=== PATIENT | female | born 1935 | race Two or more races ===

== ENCOUNTER 2018-11-04 13:02 | Emergency (ER) | payer MEDICARE, MEDICAID ==
[~2018-11-04] VITALS: Ht 152.4 cm; Wt 49.9 kg
[2018-11-04 14:01] LABS: Basophils # (auto) 0 uL; Basophils % (auto) 0.5 % (0.0-2.0); Eosinophils # (auto) 0.1 uL; Eosinophils % (auto) 0.7 % (0.0-7.0); Hematocrit 35.6 % (36.0-46.0); Hemoglobin 11.8 g/dL (12.2-16.2); Lymphocytes # (auto) 2.3 uL; Lymphocytes % (auto) 25.6 % (10.0-50.0); Mean Corpuscular Hgb Conc. 33.1 g/dL (32.0-36.0); Mean Corpuscular Volume 90.7 fL (80.0-100.0); Monocytes # (auto) 0.6 uL; Monocytes % (auto) 6.2 % (0.0-12.0); Neutrophils # (auto) 6.1 uL; Platelet Count (auto) 203 10^3/uL (140-450); Red Blood Cells 3.93 10^6/uL (4.0-5.20); Red Cell Distribution Width 14.7 % (11.8-14.3)
[2018-11-04 14:10] LABS: Chloride 100 mmol/L (98-107); Potassium 3.5 mmol/L (3.5-5.1); Sodium 135 mmol/L (136-145)
[2018-11-04 14:12] LABS: Albumin 3.3 g/dL (3.4-5.0); Anion Gap 14 (5-15); Blood Urea Nitrogen 20 mg/dL (7-18); Carbon Dioxide 21 mmol/L (21-32); Glucose 209 mg/dL (74-106); Magnesium 1.6 mg/dL (1.6-2.6)
[2018-11-04 14:15] LABS: Alanine Aminotransferase 157 U/L (13-56); Aspartate Aminotransferase 105 U/L (15-37); BUN/Creatinine Ratio 24.1; GFR African American 85 mL/min; GFR Non-African American 70 mL/min
[2018-11-04 14:18] LABS: Alkaline Phosphatase 90 U/L (45-117); Bilirubin, Total 0.5 mg/dL (0.2-1.0); Total Protein 6.8 g/dL (6.4-8.2)
[2018-11-04] MEDS ORDERED: TETANUS-DIPTH-ACEL PERTUSSIS 0.5ML SYRG IM ONE (15:00)
[2018-11-04] MEDS ORDERED: ACETAMINOPHEN 325 MG TAB PO ONE (15:00)
[2018-11-04 16:45] VITALS: BP 139/65
[2018-11-04 17:04] LABS: Urine Bacteria NONE SEEN /hpf (None Seen); Urine Blood Negative /uL (Negative); Urine WBC <1 /hpf (0 - 5)
== END 2018-11-04 16:01 | disposition short-term general hospital (02) ==
LOC: EDBD 13:02 → ER 13:13
DX: S06.6X9A Traumatic subarachnoid hemorrhage with loss of consciousness of unspecified duration, initial encounter (principal); S01.01XA Laceration without foreign body of scalp, initial encounter; S13.4XXA Sprain of ligaments of cervical spine, initial encounter; M25.552 Pain in left hip; M25.531 Pain in right wrist; D64.9 Anemia, unspecified; R79.89 Other specified abnormal findings of blood chemistry; E11.9 Type 2 diabetes mellitus without complications; I10 Essential (primary) hypertension; Z88.0 Allergy status to penicillin; W01.0XXA Fall on same level from slipping, tripping and stumbling without subsequent striking against object, initial encounter; Y93.89 Activity, other specified; Y92.481 Parking lot as the place of occurrence of the external cause; Y99.8 Other external cause status
CPT/HCPCS: 36415; 51701; 70450; 72125; 72192; 73110; 80053; 81001; 83735; 84484; 85025; 90471; 90715; 93005; 99291